=== PATIENT | female | born 1985 | race Caucasian/White ===

== ENCOUNTER 2022-06-11 07:16 | Emergency (ER) | payer SELFPAY ==
[~2022-06-11] VITALS: Ht 167.6 cm; Wt 69.4 kg
[2022-06-11 07:36] VITALS: BP 151/97
== END 2022-06-11 07:54 | disposition left against medical advice (07) ==
LOC: ER 07:17
DX: Z00.8 Encounter for other general examination (principal); Z53.21 Procedure and treatment not carried out due to patient leaving prior to being seen by health care provider